=== PATIENT | male | born 1965 | race American Indian/Alaskan Native ===

== ENCOUNTER 2017-06-27 23:32 | Emergency (ER) | payer BC ==
[2017-06-28] MEDS ORDERED: APRESOLINE IV ONE (01:22)
[2017-06-28] MEDS ORDERED: ZOFRAN IV ONE (01:38)
[2017-06-28] MEDS ORDERED: MORPHINE IV ONE (01:38)
[2017-06-28] MEDS ORDERED: MORPHINE ONE (01:40)
[2017-06-28] MEDS ORDERED: ZOFRAN ONE (01:40)
[2017-06-28 01:43] LABS: Basophils % (Auto) 0.3 % (0.0-1.8); Eosinophils # (Auto) 0.1 K/mm3 (0.0-0.4); Eosinophils % (Auto) 1.2 % (0.0-4.3); Hematocrit 38.1 % (35.5-45.6); Hemoglobin 12.5 gm/dl (11.8-15.2); Lymphocytes # (Auto) 1.1 K/mm3 (1.2-5.4); Lymphocytes % (Auto) 11.1 % (13.4-35.0); Mean Corpuscular HGB Conc 33 % (32-34); Mean Corpuscular Hemoglobin 27 pg (28-32); Mean Corpuscular Volume 81 fl (84-94); Monocytes # (Auto) 0.6 K/mm3 (0.0-0.8); Monocytes % (Auto) 5.7 % (0.0-7.3); Platelet Count 267 K/mm3 (140-440); Red Cell Distribution Width 14.6 % (13.2-15.2)
--- NOTE | 2017-06-28 01:47 | Emergency Department Report ---
HPI - General Chief Complaint: Laceration/Recheck/Suture Time Seen by Provider: 06/28/17 01:06 - HPI HPI: This is a 51-year-old male presents to the emergency department from home with a complaint of swelling to the anterior neck with some muffling of his voice that started yesterday. The patient has a history of a total thyroidectomy done on June 20 at [facility] by Dr. Jenkins. There was some postop swelling and/or discomfort but it got much worse yesterday when the patient "got excited." He denies any trouble breathing but says there is some difficulty swallowing. He also has a history of diabetes, hypertension and had the thyroidectomy done secondary to hyperthyroidism. He did not take anything for her symptoms prior to presentation. ED Past Medical Hx - Past Medical History Previous Medical History?: Yes Hx Hypertension: Yes Hx Diabetes: Yes Additional medical history: hyperthyroidectomy - Surgical History Additional Surgical History: thyroid - Social History Smoking Status: Former Smoker Substance Use Type: None ED Review of Systems ROS: Stated complaint: NECK SWELLING Other details as noted in HPI Comment: All other systems reviewed and negative Constitutional: denies: chills, fever Eyes: denies: eye pain, eye discharge, vision change ENT: throat pain. denies: ear pain Respiratory: denies: cough, shortness of breath, wheezing Gastrointestinal: denies: abdominal pain, nausea, diarrhea Genitourinary: denies: urgency, dysuria Musculoskeletal: denies: back pain, joint swelling, arthralgia Skin: other (anterior neck swelling, ecchymoses). denies: rash Neurological: denies: headache, weakness, paresthesias Physical Exam - Physical Exam Vital Signs: Vital Signs 06/27/17 06/27/17 06/28/17 23:10 23:16 00:20 Temperature Pulse Rate 112 H 112 H 81 Respiratory 30 H 32 H 19 Rate Blood Pressure O2 Sat by Pulse 99 99 Oximetry 06/28/17 06/28/17 06/28/17 00:29 00:31 00:45 Temperature 98.4 F Pulse Rate 84 79 74 Respiratory 20 14 24 Rate Blood Pressure 191/104 217/106 199/116 O2 Sat by Pulse 98 98 99 Oximetry 06/28/17 06/28/17 06/28/17 01:00 01:15 01:31 Temperature Pulse Rate 63 74 77 Respiratory 22 13 25 H Rate Blood Pressure 206/104 206/104 202/112 O2 Sat by Pulse 99 99 99 Oximetry 06/28/17 06/28/17 01:32 01:42 Temperature Pulse Rate 73 Respiratory 20 Rate Blood Pressure 202/112 O2 Sat by Pulse Oximetry Physical Exam: GENERAL: The patient is well-developed well-nourished. HENT: Normocephalic. Atraumatic. Patient has moist mucous membranes. No visible drooling or trismus. Patient does talk with a muffled voice. EYES: Extraocular motions are intact. Pupils equal reactive to light bilaterally. NECK: Supple. There is a large non-expanding area of swelling to the anterior neck over where the thyroid gland would be. It is about the size of a half of a baseball. There is some ecchymosis but no erythema. It is slightly fluctuant. There is a healing incision without any signs of dehiscence and without any bleeding or discharge. CHEST/LUNGS: Clear to auscultation. There is no respiratory distress noted. HEART/CARDIOVASCULAR: Regular. There is no tachycardia. There is no murmur. ABDOMEN: Abdomen is soft, nontender. Patient has normal bowel sounds. There is no abdominal distention. SKIN: Skin is warm and dry. NEURO: The patient is awake, alert, and oriented. The patient is cooperative. The patient has no focal neurologic deficits. MUSCULOSKELETAL: There is no tenderness or deformity. There is no limitation range of motion. There is no evidence of acute injury. ED Course Vital Signs 06/27/17 06/27/17 06/28/17 23:10 23:16 00:20 Temperature Pulse Rate 112 H 112 H 81 Respiratory 30 H 32 H 19 Rate Blood Pressure O2 Sat by Pulse 99 99 Oximetry 06/28/17 06/28/17 06/28/17 00:29 00:31 00:45 Temperature 98.4 F Pulse Rate 84 79 74 Respiratory 20 14 24 Rate Blood Pressure 191/104 217/106 199/116 O2 Sat by Pulse 98 98 99 Oximetry 06/28/17 06/28/17 06/28/17 01:00 01:15 01:31 Temperature Pulse Rate 63 74 77 Respiratory 22 13 25 H Rate Blood Pressure 206/104 206/104 202/112 O2 Sat by Pulse 99 99 99 Oximetry 06/28/17 06/28/17 01:32 01:42 Temperature Pulse Rate 73 Respiratory 20 Rate Blood Pressure 202/112 O2 Sat by Pulse Oximetry - Consultations Consultation #1: I spoke to the patient's surgeon, Dr Jenkins, who has agreed to come and see the patient in the ED and says it will be around 730 AM this morning. 06/28/17 06:28 ED Medical Decision Making - Lab Data Result diagrams: 06/28/17 01:30 06/28/17 01:30 - Radiology Data Radiology results: report reviewed PROCEDURE: CT NECK W CON TECHNIQUE: Computerized axial tomography of the soft tissue neck was performed following the IV injection of iodinated nonionic contrast. HISTORY: neck swelling s/p thyroidectomy X 1 week COMPARISON: No prior studies are available for comparison. FINDINGS: The nasopharynx is normal. There is slight opacification of the lower right maxillary sinus. Remaining paranasal sinuses are clear. The epiglottis is normal. The visualized airway is patent. The osseous structures appear intact without fracture. There is some soft tissue swelling diffusely in the region of the thyroid. The patient has a history of status post thyroidectomy. There is some air this area. Superficial soft tissue swelling over this region is noted. The findings are most consistent with postoperative swelling. With the air-fluid levels in the thyroid bed region a postoperative change versus early abscess formation are within the differential. Continued followup in this region is recommended. Salivary glands are normal. No adenopathy is noted. IMPRESSION: There is diffuse soft tissue swelling and prominence in the region of the thyroid gland and superficial soft tissues over the region of the thyroid. A few foci of air in the postoperative site of the thyroid gland is noted. The findings are most consistent with postoperative change, with the air-fluid levels, followup study may be needed if clinical symptomatology is persistent. Early abscess formation in this region is not entirely excluded. Transcribed By: [facility] Dictated By: FENG HILL MD Electronically Authenticated By: FENG HILL MD Signed Date/Time: 06/27/17 8396 - Medical Decision Making CT of the neck shows some soft tissue swelling and some air-fluid levels that could be a seroma but early abscess formation has not been excluded. Patient's blood pressure has come down to a more reasonable level. He is afebrile. Labs are mostly unremarkable including no leukocytosis. He's been given some pain medication for his neck pain and headache with some relief. The patient's surgeon came down to the emergency department and evaluated the patient. He made a incision and allowed some drainage from the seroma and/or hematoma and then felt the patient is safe for discharge home to follow up with him in a few days. - Differential Diagnosis hematoma, seroma, abscess, cellulitis Critical Care Time: No Critical care attestation.: If time is entered above; I have spent that time in minutes in the direct care of this critically ill patient, excluding procedure time. ED Disposition Clinical Impression: Neck swelling, Post-op pain Hypertension Qualifiers: Hypertension type: essential hypertension Qualified Code(s): I10 - Essential ( primary) hypertension Disposition: TO HOME OR SELFCARE Is pt being admited?: No Condition: Stable Instructions: Hypertension (ED) Additional Instructions: Please follow up with Dr Jenkins as planned. Return to the ED with any worsening of your symptoms or any acute distress. Try and stay away from food that are high in salt, and caffeinated products to help with your elevated blood pressure. Keep a blood pressure log. Referrals: ART JENKINS MD [Staff Physician] - 3-5 Days Time of Disposition: 06:56
[2017-06-28 02:02] LABS: BUN/Creatinine Ratio 9; Blood Urea Nitrogen 9 mg/dL (9-20); Calcium 8.6 mg/dL (8.4-10.2); Hemolysis Index 2
[2017-06-28 02:15] LABS: INR 0.88 (0.87-1.13)
[2017-06-28 02:16] LABS: Partial Thromboplastin Time 32.7 Sec. (24.2-36.6)
[2017-06-28] MEDS ORDERED: VALIUM IV ONE (02:48)
--- NOTE | 2017-06-28 04:00 | Cat Scan Report ---
FINAL REPORT PROCEDURE: CT NECK W CON TECHNIQUE: Computerized axial tomography of the soft tissue neck was performed following the IV injection of iodinated nonionic contrast. HISTORY: neck swelling s/p thyroidectomy X 1 week COMPARISON: No prior studies are available for comparison. FINDINGS: The nasopharynx is normal. There is slight opacification of the lower right maxillary sinus. Remaining paranasal sinuses are clear. The epiglottis is normal. The visualized airway is patent. The osseous structures appear intact without fracture. There is some soft tissue swelling diffusely in the region of the thyroid. The patient has a history of status post thyroidectomy. There is some air this area. Superficial soft tissue swelling over this region is noted. The findings are most consistent with postoperative swelling. With the air-fluid levels in the thyroid bed region a postoperative change versus early abscess formation are within the differential. Continued followup in this region is recommended. Salivary glands are normal. No adenopathy is noted. IMPRESSION: There is diffuse soft tissue swelling and prominence in the region of the thyroid gland and superficial soft tissues over the region of the thyroid. A few foci of air in the postoperative site of the thyroid gland is noted. The findings are most consistent with postoperative change, with the air-fluid levels, followup study may be needed if clinical symptomatology is persistent. Early abscess formation in this region is not entirely excluded.
[2017-06-28] MEDS ORDERED: XYLOCAINE 1%/ EPI 1:100,000 INFILTRATI ONE (06:30)
[2017-06-28] MEDS ORDERED: XYLOCAINE 1% 20 mL INFILTRATI ONE (06:59)
--- NOTE | 2017-06-28 07:49 | History and Physical Report ---
CHIEF COMPLAINT: Swelling of the neck. HISTORY OF PRESENT ILLNESS: This is a 51-year-old male who underwent a total thyroidectomy last week at [facility]. Apparently, he was doing fine until last night, was excited and apparently felt increasing swelling in his neck, was concerned and ended up in the Emergency Room. The patient states it is fairly large compared to yesterday, although he had some moderate swelling postoperatively, which is not unsurprising from the size of his thyroid. The patient has no voice changes or change in respiratory status and he is breathing fine. PAST MEDICAL HISTORY: Graves disease. PAST SURGICAL HISTORY: As above. SOCIAL HISTORY: Never smoked. REVIEW OF SYSTEMS: Otherwise, unremarkable. PHYSICAL EXAMINATION: VITAL SIGNS: Hemodynamically stable, afebrile. HEENT: Unremarkable. NECK: Looks like this is a seroma underneath the skin approximately about 5 cm in diameter. There is some bruising of the skin as well. RESPIRATORY: Clear. CARDIOVASCULAR: Regular rate and rhythm. ABDOMEN: Soft, nontender. EXTREMITIES: Good range of motion. NEUROLOGIC: Intact. PSYCHIATRIC: Alert and oriented x 3. DIAGNOSTIC DATA: CT scan shows fluid collection underneath the skin with an air fluid level. No obvious infection. ASSESSMENT AND PLAN: Probable seroma post-surgical. The patient was concerned about it. We will drain the seroma at the bedside and let him go home, see me back on Saturday. JOB# [id number] JENI/SHANELL
--- NOTE | 2017-06-28 08:02 | Operative Report ---
PREOPERATIVE DIAGNOSIS: Swelling neck post-thyroidectomy. POSTOPERATIVE DIAGNOSIS: Swelling neck post-thyroidectomy. PROCEDURE: Incision and drainage of a seroma. SURGEON: Brian Cornelius M.D. ANESTHESIA: Local anesthesia done at the bedside. DESCRIPTION OF PROCEDURE: Area was prepped over previous incision. After local anesthetic applied, a 1 cm incision was made overlying the incision into the subcutaneous pocket, drained what looked like an old seroma/liquified hematoma. Drained approximately 30 mL of fluid. No arterial bleeding or active bleeding was noted. It all appeared fairly old. Subsequently, packed the area with iodoform gauze and a pressure dressing. The patient tolerated the procedure well. JOB# [id number] JENI/SHANELL
[2017-06-28 08:06] VITALS: BP 142/91
== END 2017-06-28 08:04 | disposition home or self-care (01) ==
LOC: ED 23:32
DX: L76.34 Postprocedural seroma of skin and subcutaneous tissue following other procedure (principal); L02.11 Cutaneous abscess of neck; E89.0 Postprocedural hypothyroidism; I10 Essential (primary) hypertension; E11.9 Type 2 diabetes mellitus without complications; Z87.891 Personal history of nicotine dependence; Y83.8 Other surgical procedures as the cause of abnormal reaction of the patient, or of later complication, without mention of misadventure at the time of the procedure; Y92.89 Other specified places as the place of occurrence of the external cause
CPT/HCPCS: 10060; 36415; 70491; 80048; 85025; 85610; 85730; 96374; 96375; 99284; J0360; J2270; J2405; J3360; Q9967